=== PATIENT | male | born 1975 | race Caucasian/White ===

== ENCOUNTER → 2020-07-05 | Outpatient (CLI) | payer OTHER ==
--- NOTE | 2020-07-06 12:07 | REP ---
INDICATION: OTHER SPECIFIED DISORDERS OF BONE M89.8X9. COMPARISON: Comparison is made with [facility] MRI imaging of the left knee dated 26 March 2020. TECHNIQUE: Sixty-seven minutes following the intravenous injection of a 13.22 mCi dose of F-18 FDG, three-dimensional PET scintigraphy is acquired from the skull vertex to the toes. Triplanar noncontrast CT scanning is acquired through the same anatomic range for attenuation correction, and image registration with scan parameters optimized to minimize radiation exposure to the patient. PET scintigraphy and CT datasets were fused and displayed on a workstation with multiplanar and projection display capability. FINDINGS: Head and neck soft tissues are unremarkable. No abnormal hypermetabolic uptake is seen. There is no abnormal pulmonary parenchymal uptake. No joleen mediastinal or hilar uptake is observed in the thorax. In the abdomen and pelvis, normal hepatic, splenic, gastrointestinal, and genitourinary FDG accumulation is appreciated. No abnormal hypermetabolic uptake is seen. On bone window settings, there is a well-circumscribed low-density lesion in the posterior and medial aspect of the tibial plateau on the left. This measures 2.9 x 2.5 cm in transverse dimension. It has well defined sclerotic margins suggesting a sub cortical cyst. It is beneath the tibial spines. There is a smaller subcentimeter cyst in the posteromedial tibial plateau on the right. 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 There is no hypermetabolic uptake in either proximal tibia. Maximum standard uptake value in the subcortical radiolucency in the left tibia is 2.19 which is not hypermetabolic. No other abnormal skeletal uptake or morphologic change. IMPRESSION: No abnormal hypermetabolic uptake. 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 <Electronically signed by Ramiro Ordaz > 07/06/20 [id number]
== END ==
LOC: M PLARAD 13:14
PROVIDERS: ATTEND Emergency Medicine
DX: M89.8X9 Other specified disorders of bone, unspecified site (principal)
CPT/HCPCS: 78816; A9552

== ENCOUNTER → 2020-07-08 | Outpatient (CLI) | payer OTHER ==
[~2020-07-08] MED LIST: GASTROGRAFIN SOLUTION 30ML (Q9963) As Ordered ONE; ISOVUE-370 76% 100ML VIAL As Ordered ONE
--- NOTE | 2020-07-13 07:34 | REP ---
INDICATION: PAIN COMPARISON: PET-CT dated 07/05/2020 TECHNIQUE: Axial contrast enhanced images from the thoracic inlet to the upper abdomen using 100 ml Isovue 370 intravenous contrast material followed by CT of the abdomen and pelvis. Coronal and sagittal reformations obtained. This CT examination was performed using the following dose reduction techniques: Automated exposure control, adjustment of mA and/or kv according to the patient's size, and use of iterative reconstruction technique. FINDINGS: The bilateral lung chiu are well aerated, relatively symmetric and essentially clear. No focal consolidation, suspicious nodule or mass lesion appreciated. No pleural effusion. No pneumothorax. Tracheobronchial tree is patent. No axillary, hilar, or mediastinal adenopathy. Mediastinum demonstrates normal thoracic aorta, pulmonary vasculature, and heart/pericardium. Visualized thyroid gland appears normal. Surrounding musculoskeletal structures are intact and without acute osseous abnormality. IMPRESSION: Normal contrast-enhanced chest CT. No acute mediastinal or pleuroparenchymal process. <Electronically signed by Jasson Shi > 07/13/20 [id number]
--- NOTE | 2020-07-13 07:38 | REP ---
INDICATION: PAIN. COMPARISON: PET-CT dated 07/05/2020 TECHNIQUE: Axial contrast-enhanced images from the lung bases to the pubic symphysis using oral and 100 cc Isovue 370 intravenous contrast material. Precontrast images of the abdomen along with coronal and sagittal reformations obtained. This CT examination was performed using the following dose reduction techniques: Automated exposure control, adjustment of mA and/or kv according to the patient's size, and the use of iterative reconstruction technique. FINDINGS: Liver demonstrates hepatomegaly and hepatosteatosis without focal hepatic lesion identified. The spleen, pancreas, gallbladder, bilateral adrenal glands and kidneys are normal. The enteric system including stomach, small, and large bowel appears normal. No evidence for obstruction or acute inflammatory process. Normal terminal ileum and appendix are identified in the right lower quadrant. Few sigmoid diverticula noted without acute diverticulitis. Pelvis demonstrates normal bladder and age-appropriate prostate/seminal vesicles. Small fat containing right inguinal hernia. No ascites. No free air. No intraperitoneal or retroperitoneal adenopathy. Abdominal aorta and vasculature appear normal. Musculoskeletal structures are intact and without acute osseous abnormality. IMPRESSION: No acute abdominopelvic pathology appreciated. Hepatomegaly and hepatosteatosis. Small fat containing right inguinal hernia. Sigmoid diverticula. <Electronically signed by Jasson Shi > 07/13/20 0726
== END ==
LOC: M RAD 15:08 → EDUNIT# 17:00
PROVIDERS: ATTEND Emergency Medicine
DX: M89.8X9 Other specified disorders of bone, unspecified site (principal); R16.0 Hepatomegaly, not elsewhere classified; K76.0 Fatty (change of) liver, not elsewhere classified; K57.30 Diverticulosis of large intestine without perforation or abscess without bleeding; K40.90 Unilateral inguinal hernia, without obstruction or gangrene, not specified as recurrent
CPT/HCPCS: 71260; 74178; Q9963; Q9967